=== PATIENT | female | born 1990 | race African-American/Black ===

== ENCOUNTER 2018-01-25 17:52 | Emergency (ER) | payer MEDICAID ==
[~2018-01-25] VITALS: Ht 170.2 cm; Wt 74.0 kg
[~2018-01-25 17:52] MED LIST: CALC215T PO; PREN-142 PO; PREN1TAB23 PO
[2018-01-25 17:55] VITALS: BP 112/62
== END 2018-01-25 19:54 | disposition left against medical advice (07) ==
LOC: ER 17:53
DX: Z53.21 Procedure and treatment not carried out due to patient leaving prior to being seen by health care provider (principal)

== ENCOUNTER 2018-05-05 12:00 | Emergency (ER) | payer MEDICAID | END 2018-05-05 14:02 | disposition left against medical advice (07) | LOC: ER 13:18 | DX: O26.891 Other specified pregnancy related conditions, first trimester (principal); Z3A.08 8 weeks gestation of pregnancy; Z53.21 Procedure and treatment not carried out due to patient leaving prior to being seen by health care provider ==

== ENCOUNTER 2018-07-17 11:05 | Observation (INO) | payer MEDICAID | END 2018-07-17 11:06 | disposition home or self-care (01) | LOC: L&D 11:05 | PROVIDERS: ADMIT Obstetrics & Gynecology; ATTEND Obstetrics & Gynecology | DX: O62.9 Abnormality of forces of labor, unspecified (principal); O23.42 Unspecified infection of urinary tract in pregnancy, second trimester; Z3A.19 19 weeks gestation of pregnancy | CPT/HCPCS: 96360; 96361; 99281; G0378 ==

== ENCOUNTER 2018-07-17 11:13 | Emergency (ER) | payer MEDICAID ==
[~2018-07-17] VITALS: Ht 160 cm; Wt 70.0 kg
[2018-07-17] MEDS ORDERED: ACETAMINOPHEN 325MG TABLET PO ONE (12:15)
[2018-07-17 12:22] LABS: BASOPHILS % 0.3 % (0.0-2.0); EOSINOPHILS % 1.4 % (0.0-5.0); HEMATOCRIT. 32.7 % (36.0-48.0); HEMOGLOBIN. 11.2 g/dL (12.0-16.0); LYMPHOCYTES % 25.5 % (20.0-50.0); MEAN CORPUSCULAR HEMOGLOBIN 29.7 pg (28.0-32.0); MEAN CORPUSCULAR VOLUME 86.9 fL (81.0-99.0); MONOCYTES % 7.8 % (2.0-8.0); PLATELET 248 x1000/uL (130-400); RED BLOOD CELL COUNT 3.77 mill/uL (4.2-5.4); RED CELL DISTRIBUTION WIDTH 13.5 % (11.6-14.6)
[2018-07-17 12:25] LABS: CHLORIDE 107 mEq/L (98-107)
[2018-07-17 12:57] LABS: B-HCG QUANTITATIVE 10983 mIU/mL (<3)
[2018-07-17 13:08] LABS: CLARITY URINE CLEAR (CLEAR); COLOR URINE YELLOW (YELLOW); KETONES URINE TRACE (NEGATIVE); LEUKOCYTE ESTERASE URINE 1+ (NEGATIVE); NITRITE URINE NEGATIVE (NEGATIVE); OCCULT BLOOD URINE NEGATIVE (NEGATIVE); PH URINE 8.5 (4.5-8.0); PROTEIN URINE NEGATIVE (NEGATIVE); UROBILINOGEN URINE 0.2 E.U./dL (0.2-1.0)
[2018-07-17] MEDS ORDERED: CEFAZOLIN 1000MG PREMIX 50 ML IV ONE (13:45)
[2018-07-17 14:46] VITALS: BP 113/67
== END 2018-07-17 14:51 | disposition home or self-care (01) ==
LOC: ER 11:13
DX: O23.42 Unspecified infection of urinary tract in pregnancy, second trimester (principal); O99.512 Diseases of the respiratory system complicating pregnancy, second trimester; J45.909 Unspecified asthma, uncomplicated; Z3A.19 19 weeks gestation of pregnancy; Z98.890 Other specified postprocedural states
CPT/HCPCS: 36415; 76805; 80053; 81003; 81025; 84702; 85025; 86850; 86900; 86901; 87086; 96365; 99285; J0690

== ENCOUNTER 2018-08-29 11:07 | Observation (INO) | payer MEDICAID ==
[~2018-08-29] VITALS: Ht 160 cm; Wt 74.8 kg
[2018-08-29 12:18] LABS: CLARITY URINE TURBID (CLEAR); COLOR URINE YELLOW (YELLOW); KETONES URINE NEGATIVE (NEGATIVE); LEUKOCYTE ESTERASE URINE 1+ (NEGATIVE); NITRITE URINE NEGATIVE (NEGATIVE); OCCULT BLOOD URINE NEGATIVE (NEGATIVE); PH URINE >=9.0 (4.5-8.0); PROTEIN URINE TRACE (NEGATIVE); SPECIFIC GRAVITY URINE 1.019 (1.005-1.030); UROBILINOGEN URINE 0.2 E.U./dL (0.2-1.0)
== END 2018-08-29 13:45 | disposition home or self-care (01) ==
LOC: L&D 11:07
PROVIDERS: ADMIT Obstetrics & Gynecology; ATTEND Obstetrics & Gynecology
DX: O62.9 Abnormality of forces of labor, unspecified (principal); Z3A.25 25 weeks gestation of pregnancy
CPT/HCPCS: 81003; 99281; G0378

== ENCOUNTER 2018-10-11 14:12 | Observation (INO) | payer MEDICAID ==
[~2018-10-11] VITALS: Ht 160 cm; Wt 76.2 kg
[~2018-10-11 14:12] MED LIST changes: -PREN1TAB23 PO
[2018-10-11] MEDS ORDERED: FERR325T6 MT (14:48)
[2018-10-11 14:57] LABS: CLARITY URINE CLEAR (CLEAR); COLOR URINE YELLOW (YELLOW); KETONES URINE NEGATIVE (NEGATIVE); LEUKOCYTE ESTERASE URINE 1+ (NEGATIVE); NITRITE URINE NEGATIVE (NEGATIVE); OCCULT BLOOD URINE NEGATIVE (NEGATIVE); PROTEIN URINE NEGATIVE (NEGATIVE); SPECIFIC GRAVITY URINE 1.009 (1.005-1.030); UROBILINOGEN URINE 0.2 E.U./dL (0.2-1.0)
== END 2018-10-11 15:50 | disposition home or self-care (01) ==
LOC: L&D 14:12
PROVIDERS: ADMIT Obstetrics & Gynecology; ATTEND Obstetrics & Gynecology
DX: O62.9 Abnormality of forces of labor, unspecified (principal); Z3A.31 31 weeks gestation of pregnancy
CPT/HCPCS: 81003; 99281; G0378

== ENCOUNTER 2018-12-12 04:36 | Inpatient (IN) | payer MEDICAID ==
[~2018-12-12] VITALS: Ht 160 cm; Wt 80.7 kg
[~2018-12-12 04:36] MED LIST changes: -CALC215T PO; +FERR325T6 MT
[2018-12-12] MEDS ORDERED: DEXT 5%/LR + PITOCIN 20UNITS/L 1,000 ML IV SCH ×2 (05:18→13:00)
[2018-12-12] MEDS ORDERED: LACTATED RINGERS 1,000 ML IV SCH (05:18)
[2018-12-12] MEDS ORDERED: NALOXONE HCL 0.4 MG/ML 1ML VIAL IM PRN (05:30)
[2018-12-12] MEDS ORDERED: LIDOCAINE HCL 1% 20ML VIAL (Pyxis) INJ INFIL SCH (05:30)
[2018-12-12] MEDS ORDERED: METHYLERGONOVINE MALEATE 0.2 MG/ML IM PRN (05:30)
[2018-12-12] MEDS ORDERED: BUTORPHANOL TARTRATE 2 MG/ML VIAL IV PRN (05:30)
[2018-12-12 05:50] LABS: BASOPHILS % 0.3 % (0.0-2.0); HEMATOCRIT. 33.7 % (36.0-48.0); HEMOGLOBIN. 11.2 g/dL (12.0-16.0); LYMPHOCYTES % 22.4 % (20.0-50.0); MEAN CORPUSCULAR HEMOGLOBIN 29.7 pg (28.0-32.0); MEAN CORPUSCULAR VOLUME 89.2 fL (81.0-99.0); MEAN PLATELET VOLUME 9.8 fl (7.4-10.4); MONOCYTES % 12.6 % (2.0-8.0); NEUTROPHILS % 63.7 % (40.0-76.0); PLATELET 209 x1000/uL (130-400); RED BLOOD CELL COUNT 3.78 mill/uL (4.2-5.4); RED CELL DISTRIBUTION WIDTH 13.7 % (11.6-14.6)
[2018-12-12 05:59] LABS: PARTIAL THROMBOPLASTIN TIME 28.4 sec (23.4-31.0); PROTHROMBIN TIME 9.9 sec (9.1-11.1)
[2018-12-12] MEDS ORDERED: PENICILLIN G POTASSIUM 5 MMU in DEXT 5% WATER 100 ML IV SCH (06:00)
[2018-12-12 06:03] LABS: CLARITY URINE CLEAR (CLEAR); COLOR URINE YELLOW (YELLOW); KETONES URINE NEGATIVE (NEGATIVE); LEUKOCYTE ESTERASE URINE 2+ (NEGATIVE); NITRITE URINE NEGATIVE (NEGATIVE); OCCULT BLOOD URINE NEGATIVE (NEGATIVE); PROTEIN URINE NEGATIVE (NEGATIVE); SPECIFIC GRAVITY URINE 1.002 (1.005-1.030); UROBILINOGEN URINE 0.2 E.U./dL (0.2-1.0)
[2018-12-12 06:14] LABS: *AMPHETAMINES SCREEN URINE NEGATIVE (NEGATIVE)
[2018-12-12 06:16] LABS: *BARBITURATES SCREEN URINE NEGATIVE (NEGATIVE); *BENZODIAZEPINES SCREEN URINE NEGATIVE (NEGATIVE); *COCAINE SCREEN URINE NEGATIVE (NEGATIVE); CANNABINOID URINE SCREEN NEGATIVE (NEGATIVE); METHADONE URINE SCREEN NEGATIVE (NEGATIVE); OPIATES URINE SCREEN NEGATIVE (NEGATIVE); PHENCYCLIDINE URINE SCREEN NEGATIVE (NEGATIVE)
[2018-12-12 06:28] LABS: HEPATITIS B SURFACE ANTIGEN NEGATIVE
[2018-12-12] MEDS ORDERED: BUPIVACAINE HCL/NS/PF EPIDURAL 100 ML EP ONE (07:11)
[2018-12-12] MEDS ORDERED: PENICILLIN G POTASSIUM 2.5 MMU in DEXTROSE 5% WATER 50 ML IV SCH (10:00)
[2018-12-12] MEDS ORDERED: ACETAMINOPHEN WITH CODEINE 300/30MG TABLET PO PRN (13:00)
[2018-12-12] MEDS ORDERED: TETANUS, DIPHTHERIA, PERTUSSIS VAC/PF 0.5ML (>7YR OLD) IM ONE (13:00)
[2018-12-12] MEDS ORDERED: INFLUENZA VIRUS VACCINE(AFLURIA) 0.5ML SYR IM ONE (13:00)
[2018-12-12] MEDS ORDERED: BISACODYL 10MG SUPP PR PRN (13:00)
[2018-12-12] MEDS ORDERED: HEMORRHOIDAL SUPP PR PRN (13:00)
[2018-12-12] MEDS ORDERED: GLYCERIN/WITCH HAZEL LEAF MEDICATED PAD TOP PRN (13:00)
[2018-12-12] MEDS ORDERED: DIPHENHYDRAMINE 25MG CAPSULE PO PRN (13:00)
[2018-12-12] MEDS ORDERED: LANOLIN OINT 0.25 GM TUBE TOP PRN (13:00)
[2018-12-12] MEDS ORDERED: IBUPROFEN 400MG TABLET PO PRN (13:00)
[2018-12-12 13:45] VITALS: BP 106/52
[2018-12-12 14:15] VITALS: BP 103/50
[2018-12-12] MEDS: IBUPROFEN 800MG TABLET PO PRN (17:12)
[2018-12-12] MEDS: SIMETHICONE 80MG TABLET CHEW PO SCH ×2 (17:13→22:10)
[2018-12-12 20:00] VITALS: BP 102/55
[2018-12-12] MEDS: DOCUSATE SODIUM 100MG CAPSULE PO SCH (22:10)
[2018-12-12 23:45] VITALS: BP 103/59
[2018-12-13] MEDS: IBUPROFEN 800MG TABLET PO PRN ×3 (05:35→21:49)
[2018-12-13 07:34] LABS: BASOPHILS % 0.2 % (0.0-2.0); EOSINOPHILS % 1.5 % (0.0-5.0); HEMATOCRIT. 30.9 % (36.0-48.0); HEMOGLOBIN. 10.3 g/dL (12.0-16.0); MEAN CORPUSCULAR HEMOGLOBIN 29.9 pg (28.0-32.0); MEAN CORPUSCULAR VOLUME 89.3 fL (81.0-99.0); MEAN PLATELET VOLUME 10.1 fl (7.4-10.4); MONOCYTES % 9.2 % (2.0-8.0); NEUTROPHILS % 69.1 % (40.0-76.0); PLATELET 190 x1000/uL (130-400); RED BLOOD CELL COUNT 3.46 mill/uL (4.2-5.4); RED CELL DISTRIBUTION WIDTH 13.5 % (11.6-14.6)
[2018-12-13 07:43] VITALS: BP 101/59
[2018-12-13] MEDS ORDERED: PRENATAL VIT/FE FUMARATE/FA TABLET PO SCH (09:00)
[2018-12-13] MEDS: SIMETHICONE 80MG TABLET CHEW PO SCH ×2 (09:03→18:02)
[2018-12-13] MEDS: FERROUS SULFATE 325MG TABLET PO SCH ×2 (09:04→18:03)
[2018-12-13 15:47] VITALS: BP 113/54
[2018-12-13] MEDS: DOCUSATE SODIUM 100MG CAPSULE PO SCH (21:00)
[2018-12-13 22:00] VITALS: BP 98/50
[2018-12-14 05:54] VITALS: BP 125/70
[2018-12-14 05:59] VITALS: BP 98/52
[2018-12-14 08:00] VITALS: BP 109/68
== END 2018-12-14 11:30 | disposition home or self-care (01) | DRG 560 ==
LOC: OBSVTOIN 04:36 → 8 EST LDRP 04:36 → OBSVTOIN 05:00 → INTOOBSV 05:00 → 8 EST LDRP 08:20 → 8EST 13:30
PROVIDERS: ADMIT Specialist; ATTEND Specialist
PROC: 10E0XZZ Delivery of Products of Conception, External Approach (ICD-10-PCS; principal; 2018-12-12)
PROC: 3E0R3BZ Introduction of Anesthetic Agent into Spinal Canal, Percutaneous Approach (ICD-10-PCS; 2018-12-12)
PROC: 00HU33Z Insertion of Infusion Device into Spinal Canal, Percutaneous Approach (ICD-10-PCS; 2018-12-12)
DX: O99.344 Other mental disorders complicating childbirth (principal); F32.9 Major depressive disorder, single episode, unspecified; Z3A.40 40 weeks gestation of pregnancy; Z37.0 Single live birth; O90.81 Anemia of the puerperium
CPT/HCPCS: 36415; 80305; 86592; 86703; 86762; 86850; 86900; 87340; 90715; 99281; J2540; J2590; J3490; J7060; J7120

== ENCOUNTER 2020-06-23 09:35 | Emergency (ER) | payer MEDICAID ==
[~2020-06-23] VITALS: Ht 160 cm; Wt 67.0 kg
[~2020-06-23 09:35] MED LIST changes: -PREN-142 PO; +PRENATAL ONE T1 EACH PO
[2020-06-23] MEDS ORDERED: ACETAMINOPHEN 325MG TABLET PO STA (10:14)
[2020-06-23 10:42] LABS: BASOPHILS % 0.4 % (0.0-2.0); EOSINOPHILS % 1.5 % (0.0-5.0); HEMOGLOBIN. 10.7 g/dL (12.0-16.0); LYMPHOCYTES % 20.9 % (20.0-50.0); MEAN CORPUSCULAR HEMOGLOBIN 29.6 pg (28.0-32.0); MEAN CORPUSCULAR VOLUME 88.4 fL (81.0-99.0); MEAN PLATELET VOLUME 8.8 fl (7.4-10.4); MONOCYTES % 8.8 % (2.0-8.0); NEUTROPHILS % 68.4 % (40.0-76.0); PLATELET 224 x1000/uL (130-400); RED BLOOD CELL COUNT 3.62 mill/uL (4.2-5.4); RED CELL DISTRIBUTION WIDTH 13.6 % (11.6-14.6)
[2020-06-23 10:47] LABS: CHLORIDE 108 mEq/L (98-107)
[2020-06-23 10:51] LABS: PROTHROMBIN TIME 10.5 sec (9.6-11.0)
[2020-06-23 12:22] LABS: HCG SCREEN POSITIVE
[2020-06-23 15:01] LABS: CLARITY URINE CLEAR (CLEAR); COLOR URINE YELLOW (YELLOW); KETONES URINE 2+ (NEGATIVE); LEUKOCYTE ESTERASE URINE TRACE (NEGATIVE); NITRITE URINE NEGATIVE (NEGATIVE); OCCULT BLOOD URINE NEGATIVE (NEGATIVE); PROTEIN URINE NEGATIVE (NEGATIVE); SPECIFIC GRAVITY URINE 1.012 (1.005-1.030); UROBILINOGEN URINE 0.2 E.U./dL (0.2-1.0)
[2020-06-23 16:00] VITALS: BP 96/52
== END 2020-06-23 17:00 | disposition home or self-care (01) ==
LOC: ER 09:35
DX: O23.42 Unspecified infection of urinary tract in pregnancy, second trimester (principal); O99.512 Diseases of the respiratory system complicating pregnancy, second trimester; J45.909 Unspecified asthma, uncomplicated; O26.892 Other specified pregnancy related conditions, second trimester; Z79.899 Other long term (current) drug therapy; Z3A.20 20 weeks gestation of pregnancy
CPT/HCPCS: 36415; 72195; 74181; 76700; 76805; 76857; 80053; 81003; 81025; 84702; 84703; 85025; 99285